=== PATIENT | female | born 2000 | race Caucasian/White ===

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

== ENCOUNTER → 2018-06-04 | Outpatient (CLI) | payer OTHER ==
[~2018-06-04] MED LIST changes: +NAPR1TAB48 PO; +ONDA4TAB10 SL
--- NOTE | 2018-06-04 12:30 | DIAGNOSTIC IMAGING REPORT ---
PELVIC COMPLETE NON OB CLINICAL HISTORY: 17 years-old Female presenting with R10.31 Abdominal pain, RLQ (right lower quadrant)[id number], G0 0, last menstrual period 3 weeks ago, regular menstrual cycles, on contraceptive, right-sided pelvic pain. TECHNIQUE: Real-time grayscale and color and spectral Doppler ultrasound imaging of the pelvis was performed first using a transabdominal probe and subsequently transvaginal for better characterization. COMPARISON: 01/29/2017. FINDINGS: Uterus: Normal. Anteverted. The uterus measures 8.0 x 4.7 x 3.8 cm. Endometrial stripe measures 6 mm in thickness. Endometrium normal-appearing. Cervix normal. Right adnexa: Right ovary normal. Right ovary measures 3.4 x 2.5 x 2.0 cm. Normal color Doppler flow and arterial and venous waveforms within the ovarian parenchyma. Left adnexa: Left ovary normal. Left ovary measures 3.5 x 3.3 x 2.1 cm. Normal color Doppler flow and arterial and venous waveforms within the ovarian parenchyma. Other: Trace free fluid, likely physiologic. IMPRESSION: No significant abnormality identified within the pelvis. No ovarian torsion. Electronically signed by: Mahesh Spangler M.D. 06/04/2018 12:29 PM Dictated Date/Time: 06/04/2018 12:27 PM
--- NOTE | 2018-06-09 07:31 | DIAGNOSTIC IMAGING REPORT ---
PELVIC COMPLETE NON OB CLINICAL HISTORY: 17 years-old Female presenting with R10.31 Abdominal pain, RLQ (right lower quadrant)[id number], G0 0, last menstrual period 3 weeks ago, regular menstrual cycles, on contraceptive, right-sided pelvic pain. TECHNIQUE: Real-time grayscale and color and spectral Doppler ultrasound imaging of the pelvis was performed first using a transabdominal probe and subsequently transvaginal for better characterization. COMPARISON: 01/29/2017. FINDINGS: Uterus: Normal. Anteverted. The uterus measures 8.0 x 4.7 x 3.8 cm. Endometrial stripe measures 6 mm in thickness. Endometrium normal-appearing. Cervix normal. Right adnexa: Right ovary normal. Right ovary measures 3.4 x 2.5 x 2.0 cm. Normal color Doppler flow and arterial and venous waveforms within the ovarian parenchyma. Left adnexa: Left ovary normal. Left ovary measures 3.5 x 3.3 x 2.1 cm. Normal color Doppler flow and arterial and venous waveforms within the ovarian parenchyma. Other: Trace free fluid, likely physiologic. IMPRESSION: No significant abnormality identified within the pelvis. No ovarian torsion. Electronically signed by: Mahesh Spangler M.D. 06/04/2018 12:29 PM Dictated Date/Time: 06/04/2018 12:27 PM
== END | disposition home or self-care (01) ==
LOC: C.ULTR 11:21
PROVIDERS: ATTEND Neuromusculoskeletal Medicine & OMM
DX: R10.31 Right lower quadrant pain (principal)

== ENCOUNTER 2019-03-20 07:43 | Inpatient (IN) ==
[~2019-03-20 07:43] MED LIST changes: -BCPILLS PO; +BUPIVACAINE 0.25% 30 ML VIAL ONE; -CHOL2000 PO; -LXP10 PO; -NAPR1TAB48 PO; -ONDA4TAB10 SL; -RIBO100T9 PO; -TPM/50 PO; +ePHEDrine sulfate 50 MG/ML AMP ONE; +fentaNYL 2MCG/ML ROPIV 1.25MG/ML 100 ML BAG EPI ONE; +fentaNYL citrate 100 MCG/2 ML VIAL ONE
[2019-03-20] MEDS ORDERED: LACTATED RINGER'S 1,000 ML IV PRN ×3 (08:10→17:11)
[2019-03-20] MEDS ORDERED: OXYTOCIN 30 UNITS/500 ML BAG IV PRN ×2 (08:10)
[2019-03-20] MEDS: LACTATED RINGER'S 1,000 ML IV SCH ×3 (08:26→19:02)
[2019-03-20 08:36] LABS: Hematocrit (blood only) 29.4 % (37-47); Hemoglobin 9.8 g/dL (12.0-16.0); Mean Corpuscular Volume 86.7 fL (80-100); Platelet Count 322 K/uL (130-400); RDW Coefficient of Variation 14.8 % (11.5-14.5); RDW Standard Deviation 46.4 fL (36.4-46.3); Red Blood Count 3.39 M/uL (4.2-5.4); White Blood Count 16.38 K/uL (4.8-10.8)
[2019-03-20 08:41] LABS: Mean Corpuscular Hgb Conc 33.3 g/dL (32-36)
--- NOTE | 2019-03-20 09:00 | History & Physical Report ---
Date of Service March 20, 2019 Assessment & Plan (1) Encounter for induction of labor: 18yo here for induction of labor at 41.1 weeks for postdates. complicated by migraines and Hx of anxiety and depression, currently on Fluoxetine 10mg during the . GBS- -Pitocin, fluids, NPO -Anticipate History of Present Illness Chief Complaint: Induction of Labor Primary Care Provider: Linda Abdi DO Ms. Kebede is a 18yo here for induction of labor at 41.1 weeks for postdates. LUCÍA of 03/12/19 confirmed by LMP. complicated by migraines and Hx of anxiety and depression currently on Fluoxetine 10mg during the . Had stopped cold-turkey previously used meds of buspirone, topiramate upon positive urine test. A+, antibody NEGATIVE. Rubella immune, HbsAg-, HIV negative, 3rd trimester GC NEGATIVE. Diabetes 1hr screen NEGATIVE x2 Declined QUAD screen, no other genetic testing noted. GBS- Allergies Allergy/AdvReac Type Severity Reaction Status Date / Time No Known Allergies Allergy Unverified 06/05/18 10:01 Home Medications Home Medications Medication Instructions Recorded Confirmed Type fluoxetine 10 mg PO DAILY 03/20/19 03/20/19 History iron 325 mg PO DAILY 03/20/19 03/20/19 History vit-iron fum-folic ac 1 tab PO DAILY 03/20/19 03/20/19 History [ Vitamin] Patient History Medical History Depression with anxiety taking 10mg of fluoxetine daily Migraines no current medications [place] teeth removed age 14 Family History Grandfather (Maternal) Diabetes Grandmother (Maternal) Hypertension Social History Preferred Language: Maltese Communication Ability: Effective Beliefs That Will Affect Care: None marital status: Single Current Living Situation: Parent Other Information That Helps Us Care for You: No Feels Safe at Home: Yes Safety Concerns: Feels Safe At This Time Smoking Status: Never smoker Do You Dip or Chew Tobacco: No Hx Alcohol Use: No Hx Substance Use: No Review of Systems no fever, no chills and no sweats no dyspnea no chest pain, no palpitations, no edema and no calf pain no nausea and no vomiting no headache(s) Physical Exam Respiratory: normal respiratory effort, lungs clear to auscultation Cardiovascular: Rate/Rhythm: regular rate and regular rhythm Extremities: no calf tenderness and no edema Genitourinary: OB Exam Abdomen: + vertex and + posterior Manual OB Exam: + cervical dilation 5 cm, + cervical effacement 80% and + station -1 C[address] Exam done by Dr. Cassidy Summers. Results & Data Vital Signs (Past 12 Hours) Vital Signs Temp Pulse Resp BP 03/20/19 08:00 82 117/68 03/20/19 07:51 36.8 C 20 Laboratory Results Laboratory Results - last 24 hr 03/20/19 08:18 WBC 16.38 H RBC 3.39 L Hgb 9.8 L Hct 29.4 L MCV 86.7 MCH 28.9 MCHC 33.3 RDW Std Deviation 46.4 H RDW Coeff of Dioni 14.8 H Plt Count 322 MPV 9.0 Medications Administered Home Medications fluoxetine 10 mg PO DAILY 03/20/19 [History Confirmed 03/20/19] iron 325 mg PO DAILY 03/20/19 [History Confirmed 03/20/19] vit-iron fum-folic ac [ Vitamin] 1 tab PO DAILY 03/20/19 [History Confirmed 03/20/19] Active Medications Lactated Ringer's (Lr) 1,000 mls @ 999 mls/hr IV .Q1H1M PRN PRN Reason: Pre-Anesthesia Stop: 04/19/19 08:09 Lactated Ringer's (Lr) 1,000 mls @ 999 mls/hr IV .Q1H1M PRN PRN Reason: Tachysystole Stop: 03/22/19 08:09 Oxytocin (Pitocin) 30 units in 500 mls @ 333.333 mls/hr IV .Q1H30M PRN; Protocol PRN Reason: Bleeding Control Stop: 04/19/19 08:09 Lactated Ringer's (Lr) 1,000 mls @ 125 mls/hr IV .Q8H FRITZ Stop: 03/22/19 08:14 Last Admin: 03/20/19 08:26 Dose: 125 mls/hr Documented by: Oxytocin (Pitocin) 30 units in 500 mls @ 1 mls/hr IV .Q24H PRN; Protocol PRN Reason: Labor Induction/Augmentation Stop: 03/22/19 08:09 Last Admin: 03/20/19 08:43 Dose: 0.06 units/hr, 1 mls/hr Documented by: Supervising Physician Co-Signing Physician Notes Resident Physician Supervision Note: I have seen and examined the patient. I discussed the case with the resident and agree with the findings and plan as documented in the note. Any exceptions or clarifications are listed here: 18yo @ 41 11/24 here for IOL for postdates. Rodriguez balloon last night, plan for pitocin and AROM. Anticipate . Documented By: DO LORENZO Calhoun
--- NOTE | 2019-03-20 13:59 | Obstetrical Progress Note ---
Date of Service March 20, 2019 Subjective Comfortable. FHT Cat 1 [place] Q 2 AROM meconium stained. 5/80/-2 Results & Data Vital Signs (Past 12 Hours) Vital Signs Temp Pulse Resp BP 03/20/19 13:10 78 119/58 L 03/20/19 11:59 75 117/60 03/20/19 11:57 98.4 F 18 03/20/19 11:01 83 126/60 03/20/19 10:03 86 118/63 03/20/19 09:15 78 117/64 03/20/19 08:00 82 117/68 03/20/19 07:51 98.2 F 20
[2019-03-20] MEDS ORDERED: BUPIVACAINE 0.25% 30 ML VIAL ONE (14:24)
[2019-03-20] MEDS ORDERED: fentaNYL citrate 100 MCG/2 ML VIAL ONE (14:25)
[2019-03-20] MEDS ORDERED: ePHEDrine sulfate 50 MG/ML AMP ONE (14:25)
[2019-03-20] MEDS ORDERED: fentaNYL 2MCG/ML ROPIV 1.25MG/ML 100 ML BAG EPI ONE (14:26)
--- NOTE | 2019-03-20 14:50 | Anesthesiology Consultation ---
Date of Service March 20, 2019 Assessment & Plan (1) Term : Chart Review Chart Review: Acceptable Risk for Surgery and Acceptable Risk for Labor Epidural History Height/Weight Height: 5 ft 4 in Weight: 65.771 kg Allergies Allergy/AdvReac Type Severity Reaction Status Date / Time No Known Allergies Allergy Unverified 06/05/18 10:01 Medications Home Medications Medication Instructions Recorded Confirmed Last Taken fluoxetine 10 mg PO DAILY 03/20/19 03/20/19 03/19/19 23:30 1 iron 325 mg PO DAILY 03/20/19 03/20/19 03/19/19 10:00 1 vit-iron fum-folic ac 1 tab PO DAILY 03/20/19 03/20/19 03/19/19 10:00 [ Vitamin] Active Medications Generic Name Dose Route Start Last Admin Trade Name Freq PRN Reason Stop Dose Admin Lactated Ringer's 1,000 mls @ 125 mls/hr 03/20/19 08:15 03/20/19 14:38 Lr IV 03/22/19 08:14 999 mls/hr .Q8H FRITZ Administration Oxytocin 30 units in 500 mls @ 7 mls/hr 03/20/19 08:10 03/20/19 11:00 Pitocin IV 03/22/19 08:09 0.42 units/hr .Q24H PRN 7 mls/hr Labor Induction/Augmentation Titration Protocol 0.42 UNITS/HR Past Medical History Medical History Depression with anxiety taking 10mg of fluoxetine daily Migraines no current medications [place] teeth removed age 14 Past Family History Family History Grandfather (Maternal) Diabetes Grandmother (Maternal) Hypertension Social History Smoking Status: Never smoker Do You Dip or Chew Tobacco: No Hx Alcohol Use: No Hx Substance Use: No Physical Exam Vital Signs Last Vital Signs Temp 36.9 C 03/20/19 14:14 Pulse 75 03/20/19 14:14 Resp 20 03/20/19 14:14 BP 138/74 03/20/19 14:14 Testing Laboratory Results 03/20/19 08:18
[2019-03-20] MEDS ORDERED: ePHEDrine sulfate 50 MG/ML AMP IV PRN (17:11)
[2019-03-20] MEDS ORDERED: NALOXONE HCL 0.4 MG/1 ML VIAL/CARP IV PRN (17:11)
[2019-03-20] MEDS ORDERED: ONDANSETRON INJ 2 MG/ML 2 ML VIAL IV PRN (17:44)
[2019-03-20] MEDS ORDERED: ONDANSETRON INJ 2 MG/ML 2 ML VIAL ONE (17:50)
[2019-03-20] MEDS: fentaNYL 2MCG/ML ROPIV 1.25MG/ML 100 ML BAG EPI PRN ×2 (19:04→20:21)
[2019-03-21] MEDS: CEFAZOLIN 1000MG 1,000 MG/7.5 ML SYR IV SCH ×3 (00:59→16:50)
--- NOTE | 2019-03-21 01:18 | Procedure Note ---
Vaginal Delivery Summary Date of Service March 21, 2019 Vaginal Delivery Summary Predelivery diagnoses: 18yo @ 41 2/7, IOL for postdates, depression/anxiety, migraines Postdelivery diagnoses: same Procedure: Spontaneous vaginal delivery, repair of 2nd degree perineal laceration, manual extraction of placenta Surgeon: Teressa Alanis DO Complications: None Estimated blood loss: 300ml Findings: Viable male , Apgars 7/9. Weight pending, please see nursery records. Description of delivery: The patient progressed to complete dilation with epidural anesthesia. She then began to push. She spontaneously vaginally delivered a viable from the cephalic presentation. The head delivered in NADIR position. The anterior shoulder delivered, followed by the posterior shoulder, followed by the body. The baby was placed on mother's abdomen, a spontaneous cry was heard. Delayed cord clamping was employed, and the cord was doubly clamped and cut. Cord blood was obtained. During attempt to deliver the placenta, the cord avulsed and therefore the placenta was delivered via manual extraction. Pitocin was given, the uterus became firm. The uterus and vagina were swept of all clots and debris. Cervix, vagina, perineum were inspected a 2nd degree perineal laceration was noted and repaired in standard fashion. At the conclusion of the delivery, sponge, instrument counts were correct x2. Mother and baby tolerated delivery well and are recovering in the room in stable good condition.
[2019-03-21] MEDS ORDERED: OXYCODONE/ACETAMINOPHEN 5mg/325mg TAB PO PRN (01:51)
[2019-03-21] MEDS ORDERED: ACETAMINOPHEN 325 MG TAB PO PRN (01:51)
[2019-03-21] MEDS ORDERED: SUPERCREAM 0.870% 15 GM JAR EXT PRN (01:51)
[2019-03-21] MEDS ORDERED: DIPHTHERIA/TETANUS/PERTUSSIS 0.5 ML SYR/VIAL IM ONE (01:51)
[2019-03-21] MEDS ORDERED: BISACODYL 10 MG SUPP PR PRN (01:51)
[2019-03-21] MEDS ORDERED: OXYTOCIN 30 UNITS/500 ML BAG IV PRN (01:51)
[2019-03-21] MEDS ORDERED: HYDROCORTISONE ACETATE 25 MG SUPP PR PRN (01:51)
[2019-03-21] MEDS ORDERED: BENZOCAINE 20% AER SPR 82.5 GM CAN EXT PRN (01:51)
[2019-03-21] MEDS ORDERED: IBUPROFEN 600 MG TAB PO ONE (01:54)
[2019-03-21] MEDS: IBUPROFEN 600 MG TAB PO PRN ×4 (05:17→23:17)
--- NOTE | 2019-03-21 07:35 | Anesthesia Procedure Note ---
Date of Service March 21, 2019 Anesthesia Post Epidural Note Vital Signs Vital Signs: Temp Pulse Resp BP Pulse Ox 36.9 C 88 18 129/65 98 03/21/19 04:35 03/21/19 04:35 03/21/19 04:35 03/21/19 04:35 03/21/19 04:35 Pain Intensity Abdomen: Pain Intensity: 0 Bilateral Head: Pain Intensity: 5 Perineal: Pain Intensity: 6 Notes Mental Status: alert / awake / arousable Patient Amnestic to Procedure: No Nausea / Vomiting: adequately controlled Pain: adequately controlled Airway Patency, RR, SpO2: stable & adequate BP & HR: stable & adequate Hydration State: stable & adequate Anesthetic Complications: no major complications apparent Epidural: Removed without complications and With tip intact Notes: Doing well, no complaints. Has been OOB. Denies TRIPLETT, backache. Epidural site looks clean and dry without signs of edema or erythema.
[2019-03-21 08:17] LABS: Hemoglobin 8.6 g/dL (12.0-16.0)
[2019-03-21] MEDS: PRENATAL VITAMIN 1 TAB PO SCH (08:35)
[2019-03-21] MEDS: FLUOXETINE HCL 10 MG CAP PO SCH (08:35)
[2019-03-21] MEDS: DOCUSATE SODIUM 100 MG CAP PO SCH ×2 (08:35→20:34)
--- NOTE | 2019-03-22 08:06 | Obstetrical Progress Note ---
Date of Service March 22, 2019 Assessment & Plan (1) Term : - doing well - anemic on admission, will add Fe - routine care - doing well Subjective Ambulation: ambulating normally Voiding: no voiding problems Feeding Type:: breast feeding Physical Exam Vital Signs (Past 24 Hours) Last Vital Signs Temp 97.9 F 03/21/19 23:15 Pulse 83 03/21/19 23:15 Resp 18 03/21/19 23:15 BP 121/73 03/21/19 23:15 Pulse Ox 98 03/21/19 23:15 Gastrointestinal (Abdomen) - fundus firm below U Musculoskeletal (-) deep calf tenderness
[2019-03-22] MEDS: DOCUSATE SODIUM 100 MG CAP PO SCH ×2 (09:00→19:38)
[2019-03-22] MEDS: PRENATAL VITAMIN 1 TAB PO SCH (09:00)
[2019-03-22] MEDS: FLUOXETINE HCL 10 MG CAP PO SCH (09:01)
[2019-03-22] MEDS: IBUPROFEN 600 MG TAB PO PRN ×3 (09:01→23:14)
[2019-03-22] MEDS: FERROUS SULFATE 325 MG TAB PO SCH (19:38)
[2019-03-22] MEDS ORDERED: BISACODYL 5 MG TABEC PO SCH (20:00)
--- NOTE | 2019-03-23 06:11 | Obstetrical Progress Note ---
Date of Service March 23, 2019 Assessment & Plan (1) Term : - patient desires d/c - instructions given - f/u in 6 weeks Subjective Ambulation: ambulating normally Feeding Type:: breast feeding Physical Exam Vital Signs (Past 24 Hours) Last Vital Signs Temp 98.2 F 03/22/19 23:10 Pulse 77 03/22/19 23:10 Resp 18 03/22/19 23:10 BP 119/71 03/22/19 23:10 Pulse Ox 98 03/22/19 15:25 Gastrointestinal (Abdomen) Fundus firm below U Musculoskeletal (-) deep calf tenderness
[2019-03-23] MEDS: DOCUSATE SODIUM 100 MG CAP PO SCH (08:07)
[2019-03-23] MEDS: PRENATAL VITAMIN 1 TAB PO SCH (08:08)
[2019-03-23] MEDS: FERROUS SULFATE 325 MG TAB PO SCH (08:08)
[2019-03-23] MEDS: FLUOXETINE HCL 10 MG CAP PO SCH (08:09)
[2019-03-23] MEDS: IBUPROFEN 600 MG TAB PO PRN ×2 (08:09→12:25)
== END 2019-03-23 20:30 | disposition home or self-care (01) | DRG 807 ==
LOC: 4S1 07:43 → 4S2 03-21 04:35